=== PATIENT | male | born 1985 | race African-American/Black ===

== ENCOUNTER 2017-02-19 16:12 | Emergency (ER) | payer OTHER ==
[~2017-02-19] VITALS: Ht 172.7 cm; Wt 65.0 kg
[2017-02-19 16:30] VITALS: BP 122/70
[2017-02-19] MEDS ORDERED: IV NORMAL SALINE 1,000ML 1,000 ML IV ONE (16:45)
[2017-02-19] MEDS ORDERED: PROCHLORPERAZINE 10 MG/2 ML VIAL. IV ONE (17:00)
[2017-02-19] MEDS ORDERED: KETOROLAC 15 MG/ML VIAL. IV ONE (17:00)
[2017-02-19] MEDS ORDERED: ONDANSETRON PF 4 MG/2 ML VIAL. IV ONE (17:00)
[2017-02-19] MEDS ORDERED: DIPHENHYDRAMINE 50 MG/ML VIAL IVP ONE (17:00)
--- NOTE | 2017-02-19 17:04 | ED.ADGEN ---
Past History Past Medical History: No Pertinent History Past Surgical History: No Surgical History Alcohol Use: Occasionally Drug Use: None Adult General HPI HPI Patient is a 31-year-old male presents emergency department complaining of 2 to three-day history of worsening bilateral temporal headache. He also notes that beginning last night he has had nausea, vomiting, and diarrhea. Patient initially tried Tylenol and Excedrin for his headache without much relief. He does not have a history of migraines. Although he does endorse photophobia and phonophobia now. Denies any history of bad food exposure or recent travel. Review of Systems Review of Systems Constitutional: Denies fever or chills [] Eyes: Denies change in visual acuity, redness, or eye pain [] HENT: Denies nasal congestion or sore throat [] Respiratory: Denies cough or shortness of breath [] Cardiovascular: No additional information not addressed in HPI [] GI: Denies abdominal pain, nausea, vomiting, bloody stools or diarrhea [] : Denies dysuria or hematuria [] Musculoskeletal: Denies back pain or joint pain [] Integument: Denies rash or skin lesions [] Neurologic: Denies headache, focal weakness or sensory changes [] Endocrine: Denies polyuria or polydipsia [] Current Medications Current Medications Current Medications Medications (Trade) Dose Ordered Sig/Melia Start Time Stop Time Status Last Admin Dose Admin Diphenhydramine HCl (Benadryl) 25 mg 1X ONCE 02/19/17 17:00 02/19/17 17:01 DC 02/19/17 16:59 25 MG Ketorolac Tromethamine (Toradol) 15 mg 1X ONCE 02/19/17 17:00 02/19/17 17:01 DC 02/19/17 16:58 15 MG Ondansetron HCl (Zofran) 4 mg 1X ONCE 02/19/17 17:00 02/19/17 17:01 DC 02/19/17 16:57 4 MG Prochlorperazine Edisylate (Compazine) 10 mg 1X ONCE 02/19/17 17:00 02/19/17 17:01 DC 02/19/17 16:57 10 MG Sodium Chloride (Iv Sodium Chloride 0.9% 1,000ml) 1,000 ml @ 1,000 mls/hr 1X ONCE 02/19/17 16:45 02/19/17 17:44 02/19/17 16:57 1,000 MLS/HR Allergies Allergies Allergies Coded Allergies Type Severity Reaction Last Updated Verified No Known Drug Allergies 02/19/17 No Physical Exam Physical Exam Constitutional: Well developed, well nourished, no acute distress, non-toxic appearance. [] HENT: Normocephalic, atraumatic, bilateral external ears normal, oropharynx moist, no oral exudates, nose normal. [] Eyes: PERRLA, EOMI, conjunctiva normal, no discharge. [] Neck: Normal range of motion, no tenderness, supple, no stridor. [] Cardiovascular:Heart rate regular rhythm, no murmur [] Lungs & Thorax: Bilateral breath sounds clear to auscultation [] Abdomen: Bowel sounds normal, soft, no tenderness, no masses, no pulsatile masses. [] Skin: Warm, dry, no erythema, no rash. [] Back: No tenderness, no CVA tenderness. [] Extremities: No tenderness, no cyanosis, no clubbing, ROM intact, no edema. [] Neurologic: Alert and oriented X 3, normal motor function, normal sensory function, no focal deficits noted. [] Psychologic: Affect normal, judgement normal, mood normal. [] Current Patient Data Vital Signs Vital Signs Date Time Temp Pulse Resp B/P Pulse Ox O2 Delivery O2 Flow Rate FiO2 02/19/17 16:30 98.1 99 20 99 Room Air EKG EKG [] Radiology/Procedures Radiology/Procedures [] Course & Med Decision Making Course & Med Decision Making Pertinent Labs and Imaging studies reviewed. (See chart for details) IV fluids, Compazine, Zofran, Toradol, and Benadryl [] Final Impression Final Impression Headache Gastroenteritis [] Problems: Dragon Disclaimer Dragon Disclaimer This electronic medical record was generated, in whole or in part, using a voice recognition dictation system. EDUARDO VINES MD Feb 19, 2017 17:04
[2017-02-19] MEDS ORDERED: ONDA4TAB10 PO (17:35)
== END 2017-02-19 17:46 | disposition home or self-care (01) ==
LOC: ER 16:12
DX: K52.9 Noninfective gastroenteritis and colitis, unspecified (principal); R51 Headache
CPT/HCPCS: 96361; 96374; 96375; 99284; J0780; J1200; J1885; J2405; J7030

== ENCOUNTER 2018-02-18 20:05 | Emergency (ER) | payer OTHER ==
[~2018-02-18] VITALS: Ht 172.7 cm; Wt 72.6 kg
[~2018-02-18 20:05] MED LIST: ONDA4TAB10 PO
[2018-02-18] MEDS ORDERED: ONDANSETRON PF 4 MG/2 ML VIAL. IV ONE (20:45)
[2018-02-18] MEDS ORDERED: IV NORMAL SALINE 1,000ML 1,000 ML IV ONE (20:45)
[2018-02-18] MEDS ORDERED: ONDANSETRON ODT 4 MG TAB.RAPDIS PO ONE (21:00)
[2018-02-18] MEDS ORDERED: IBUPROFEN 600 MG TABLET. PO ONE (21:00)
--- NOTE | 2018-02-18 21:24 | ED.ADGEN ---
Past History Past Medical History: No Pertinent History Past Surgical History: No Surgical History Alcohol Use: Occasionally Drug Use: None Adult General HPI HPI Patient is a 32 y/o male who states he has had n/v/d since yest. 101 tmax at home. 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 no other sick contacts. no travel. no swimming in lakes, oceans. no focal abd pain. no hx of UC, diverticulitis Review of Systems Review of Systems Constitutional: Denies fever or chills [] Eyes: Denies change in visual acuity, redness, or eye pain [] HENT: Denies nasal congestion or sore throat [] Respiratory: Denies cough or shortness of breath [] Cardiovascular: No additional information not addressed in HPI [] GI: n/v/d, watery stools. abdominal cramping : Denies dysuria or hematuria [] Musculoskeletal: Denies back pain or joint pain [] Integument: Denies rash or skin lesions [] Neurologic: Denies headache, focal weakness or sensory changes [] Endocrine: Denies polyuria or polydipsia [] All other systems were reviewed and found to be within normal limits, except as documented in this note. Current Medications Current Medications Current Medications Medications (Trade) Dose Ordered Sig/Melia Start Time Stop Time Status Last Admin Dose Admin Ibuprofen (Motrin) 600 mg 1X ONCE 02/18/18 21:00 02/18/18 21:01 DC 02/18/18 21:03 600 MG Ondansetron HCl (Zofran Odt) 4 mg 1X ONCE 02/18/18 21:00 02/18/18 21:01 DC 02/18/18 21:03 4 MG Ondansetron HCl (Zofran) 4 mg 1X ONCE 02/18/18 20:45 02/18/18 21:15 DC Sodium Chloride 1,000 ml @ 1,000 mls/hr 1X ONCE 02/18/18 20:45 02/18/18 21:15 DC Allergies Allergies Allergies Coded Allergies Type Severity Reaction Last Updated Verified No Known Drug Allergies 02/19/17 No Physical Exam Physical Exam Constitutional: Well developed, well nourished, no acute distress, non-toxic appearance. [] HENT: Normocephalic, atraumatic, bilateral external ears normal, oropharynx moist, no oral exudates, nose normal. [] Eyes: PERRLA, EOMI, conjunctiva normal, no discharge. [] Neck: Normal range of motion, no tenderness, supple, no stridor. [] Cardiovascular:Heart rate regular rhythm, no murmur [] Lungs & Thorax: Bilateral breath sounds clear to auscultation [] Abdomen: Bowel sounds normal, soft, minimal tenderness in all quadrants. no focal pain. not worse in RLQ . no masses, no pulsatile masses. [] Skin: Warm, dry, no erythema, no rash. [] Back: No tenderness, no CVA tenderness. [] Extremities: No tenderness, no cyanosis, no clubbing, ROM intact, no edema. [] Neurologic: Alert and oriented X 3, normal motor function, normal sensory function, no focal deficits noted. [] Psychologic: Affect normal, judgement normal, mood normal. [] Current Patient Data Vital Signs Vital Signs Date Time Temp Pulse Resp B/P (MAP) Pulse Ox O2 Delivery O2 Flow Rate FiO2 02/18/18 20:05 99.9 96 18 97 Room Air EKG EKG [] Radiology/Procedures Radiology/Procedures [] Course & Med Decision Making Course & Med Decision Making Pertinent Labs and Imaging studies reviewed. (See chart for details) pt refuses IV and blood draw. he gets anxiety and lightheaded with IV. we expressed the importance of checking electrolytes and hydrating IV is faster. he still refuses. he states he will return if he worsens for re-evaluation [] Final Impression Final Impression vomiting and diarrhea[] Problems: Dragon Disclaimer Dragon Disclaimer This electronic medical record was generated, in whole or in part, using a voice recognition dictation system. Departure Time of Disposition: 21:22 Disposition: 01 HOME, SELF-CARE Condition: IMPROVED Patient Instructions: Nausea and Vomiting Additional Instructions: push clear liquids, gatorade propel, etc. zofran for nausea. tylenol and ibuprofen for pain and fever. return if symptoms worsen Prescriptions ROCAEL Felton MD Feb 18, 2018 21:24
[2018-02-18] MEDS ORDERED: ONDA8TAB12 PO (21:25)
[2018-02-18 21:40] VITALS: BP 118/69
== END 2018-02-18 21:40 | disposition home or self-care (01) ==
LOC: ER 20:05
DX: R11.2 Nausea with vomiting, unspecified (principal); R19.7 Diarrhea, unspecified; R10.9 Unspecified abdominal pain
CPT/HCPCS: 99283; Q0162

== ENCOUNTER 2018-05-05 11:26 | Emergency (ER) | payer OTHER ==
[~2018-05-05] VITALS: Ht 172.7 cm; Wt 71.7 kg
[~2018-05-05 11:26] MED LIST changes: +ONDA8TAB12 PO
[2018-05-05] MEDS ORDERED: IV NORMAL SALINE 1,000ML 1,000 ML IV SCH (11:43)
[2018-05-05] MEDS ORDERED: 0.9 % SODIUM CHLORIDE 10 ML DISP.SYRIN. IV PRN (11:45)
[2018-05-05 12:03] LABS: BASO % 1 % (0-3); EOS # 0.1 x10^3/uL (0.0-0.7); EOS % 2 % (0-3); HEMATOCRIT 42.7 % (39.0-53.0); HEMOGLOBIN 14.1 g/dL (13.0-17.5); LYMPH # 2.9 x10^3/uL (1.0-4.8); LYMPH % 35 % (24-48); MEAN CORPUSCULAR HEMOGLOBIN 27 pg (25-35); MEAN CORPUSCULAR HGB CONC 33 g/dL (31-37); MEAN CORPUSCULAR VOLUME 83 fL (79-100); MONO # 0.7 x10^3/uL (0.0-1.1); MONO % 8 % (0-9); NEUT # 4.6 x10^3uL (1.8-7.7); NEUT % 55 % (31-73); PLATELET COUNT 243 x10^3/uL (140-400); RED BLOOD COUNT 5.13 x10^6/uL (4.30-5.70); RED CELL DISTRIBUTION WIDTH 14.4 % (11.5-14.5); WHITE BLOOD COUNT 8.3 x10^3/uL (4.0-11.0)
--- NOTE | 2018-05-05 12:11 | PHYS DOC ---
Past History Past Medical History: No Pertinent History Past Surgical History: No Surgical History Smoking: Cigarettes, Less than 1pk/day Alcohol Use: Occasionally Drug Use: None Adult General Chief Complaint Chief Complaint: NAUSEA/VOMITING/DIARRHEA HPI HPI 32-year-old male patient complaining of 5 episodes of nonbloody diarrhea and 3 episodes of vomiting since yesterday with generalized weakness and decrease of appetite. Patient denies sick contact, urinary symptoms, fever and chills. Patient states his primary care physician gave him off of work for 2 days but base job asking to come to emergency room. Review of Systems Review of Systems Constitutional: Denies fever or chills reports generalized weakness [] Eyes: Denies change in visual acuity, redness, or eye pain [] HENT: Denies nasal congestion or sore throat [] Respiratory: Denies cough or shortness of breath [] Cardiovascular: No additional information not addressed in HPI [] GI: Reports abdominal pain, nausea, vomiting,diarrhea [] : Denies dysuria or hematuria [] Musculoskeletal: Denies back pain or joint pain [] Integument: Denies rash or skin lesions [] Neurologic: Denies headache, focal weakness or sensory changes [] Endocrine: Denies polyuria or polydipsia [] All other systems were reviewed and found to be within normal limits, except as documented in this note. Current Medications Current Medications Current Medications Medications (Trade) Dose Ordered Sig/Melia Start Time Stop Time Status Last Admin Dose Admin Ondansetron HCl (Zofran) 4 mg 1X ONCE 05/05/18 11:45 05/05/18 11:46 UNV Sodium Chloride (Normal Saline Flush) 10 ml QSHIFT PRN 05/05/18 11:45 UNV Allergies Allergies Allergies Coded Allergies Type Severity Reaction Last Updated Verified No Known Drug Allergies 02/19/17 No Physical Exam Physical Exam Constitutional: Well developed, well nourished, mild distress, non-toxic appearance. [] HENT: Normocephalic, atraumatic, oropharynx dry, no oral exudates, nose normal. [] Eyes: PERRLA, EOMI, conjunctiva normal, no discharge. [] Neck: Normal range of motion, no tenderness, supple, no stridor. [] Cardiovascular:Heart rate regular rhythm, no murmur [] Lungs & Thorax: Bilateral breath sounds clear to auscultation [] Abdomen: Bowel sounds normal, soft, no tenderness, no masses, no pulsatile masses. [] Skin: Warm, dry, no erythema, no rash. [] Back: No tenderness, no CVA tenderness. [] Extremities: No tenderness, no cyanosis, no clubbing, ROM intact, no edema. [] Neurologic: Alert and oriented X 3, normal motor function, normal sensory function, no focal deficits noted. [] Psychologic: Affect normal, judgement normal, mood normal. [] Current Patient Data Lab Results Laboratory Tests Test 05/05/18 11:48 White Blood Count 8.3 x10^3/uL (4.0-11.0) Red Blood Count 5.13 x10^6/uL (4.30-5.70) Hemoglobin 14.1 g/dL (13.0-17.5) Hematocrit 42.7 % (39.0-53.0) Mean Corpuscular Volume 83 fL (79-100) Mean Corpuscular Hemoglobin 27 pg (25-35) Mean Corpuscular Hemoglobin Concent 33 g/dL (31-37) Red Cell Distribution Width 14.4 % (11.5-14.5) Platelet Count 243 x10^3/uL (140-400) Neutrophils (%) (Auto) 55 % (31-73) Lymphocytes (%) (Auto) 35 % (24-48) Monocytes (%) (Auto) 8 % (0-9) Eosinophils (%) (Auto) 2 % (0-3) Basophils (%) (Auto) 1 % (0-3) Neutrophils # (Auto) 4.6 x10^3uL (1.8-7.7) Lymphocytes # (Auto) 2.9 x10^3/uL (1.0-4.8) Monocytes # (Auto) 0.7 x10^3/uL (0.0-1.1) Eosinophils # (Auto) 0.1 x10^3/uL (0.0-0.7) Basophils # (Auto) 0.0 x10^3/uL (0.0-0.2) EKG EKG [] Radiology/Procedures Radiology/Procedures [] Course & Med Decision Making Course & Med Decision Making Pertinent Labs reviewed. (See chart for details) Evaluation of patient in ER showed 33-year-old male patient with episodes of nausea and vomiting and diarrhea since yesterday. Patient didn't want to have IV fluids and states when he had the same problem last time he didn't feel good with IV fluid but finally agreed to have IV fluid and felt better after treatment in ER.. Patient tolerated oral intake. Patient had unremarkable labs. Plan discharge patient home to diagnose of viral gastroenteritis. [] Dragon Disclaimer Dragon Disclaimer This electronic medical record was generated, in whole or in part, using a voice recognition dictation system. Departure Departure: Impression: Primary Impression: Acute gastroenteritis Additional Impressions: Tobacco abuse Tobacco abuse counseling Disposition: HOME, SELF-CARE (at 1322) Condition: IMPROVED Referrals: SHABNAM LOCKWOOD DO (PCP) Patient Instructions: Diet for Diarrhea, Adult, Viral Gastroenteritis Additional Instructions: Drink plenty of liquids Follow-up with your primary care physician in 3-5 days Return to ER if not getting better Scripts Ondansetron (ZOFRAN ODT) 4 Mg Tab.rapdis 1 TAB SL Q8HRS, #15 TAB Prov: BREN DOMÍNGUEZ MD 05/05/18 Problem Qualifiers BREN DOMÍNGUEZ MD May 05, 2018 12:11
[2018-05-05 12:14] LABS: ALBUMIN/GLOBULIN RATIO 1.1 (1.0-1.7); CALCIUM 9.3 mg/dL (8.5-10.1); GFR 104.8; POTASSIUM 4.1 mmol/L (3.5-5.1); TOTAL BILIRUBIN 0.5 mg/dL (0.2-1.0); TOTAL PROTEIN 7.7 g/dL (6.4-8.2)
[2018-05-05] MEDS ORDERED: DIPHENOXYLATE/ATROPINE TABLET. PO ONE (12:30)
[2018-05-05] MEDS ORDERED: ONDANSETRON PF 4 MG/2 ML VIAL. IV ONE (12:30)
[2018-05-05 13:12] LABS: BACTERIA,URINE 0 /HPF (0-FEW); BILIRUBIN,URINE NEG (NEG); CLARITY,URINE CLEAR; COLOR,URINE YELLOW; GLUCOSE,URINE NEG (NEG); NITRITE,URINE NEG (NEG); RBC,URINE 0 /HPF (0-2); SQUAMOUS EPITHELIAL CELL,UR OCC /LPF; UROBILINOGEN,URINE 0.2 mg/dL (0.2 mg/dL); WBC,URINE 0 /HPF (0-4)
[2018-05-05] MEDS ORDERED: ONDA4TAB10 SL (13:24)
[2018-05-05 13:30] VITALS: BP 127/65
== END 2018-05-05 13:33 | disposition home or self-care (01) ==
LOC: ER 11:26
DX: K52.9 Noninfective gastroenteritis and colitis, unspecified (principal); B97.89 Other viral agents as the cause of diseases classified elsewhere; F17.210 Nicotine dependence, cigarettes, uncomplicated; Z71.6 Tobacco abuse counseling
CPT/HCPCS: 36415; 80053; 81001; 83690; 85025; 96361; 96374; 99284; J2405; J7030

== ENCOUNTER 2018-08-02 14:59 | Emergency (ER) | payer OTHER ==
[~2018-08-02] VITALS: Ht 172.7 cm; Wt 69.9 kg
[~2018-08-02 14:59] MED LIST changes: +ONDA4TAB10 SL
--- NOTE | 2018-08-02 16:00 | RAD ---
KUB Clinical indications: Lower bilateral back pain. FINDINGS: There is mild fecal retention within the right side of the colon. No obstructive bowel pattern is evident. The osseous structures are intact. No radiopaque urinary tract stone is evident. 2 calcified phleboliths are seen within the left side of the anatomic pelvis. IMPRESSION: No acute radiographic abnormality. Electronically signed by: Mich Morataya MD (08/02/2018 3:56 PM) [id number]
[2018-08-02] MEDS ORDERED: HYDROcodone/APAP 5/325MG 1 TAB TABLET PO ONE (16:15)
[2018-08-02] MEDS ORDERED: CYCLOBENZAPRINE 10 MG TABLET. PO ONE (16:15)
[2018-08-02 16:20] LABS: CLARITY,URINE HAZY; COLOR,URINE YELLOW
[2018-08-02 16:21] LABS: BACTERIA,URINE 0 /HPF (0-FEW); BILIRUBIN,URINE NEG (NEG); GLUCOSE,URINE NEG (NEG); NITRITE,URINE NEG (NEG); SQUAMOUS EPITHELIAL CELL,UR OCC /LPF; UROBILINOGEN,URINE 1 mg/dL (0.2 mg/dL)
[2018-08-02 16:24] VITALS: BP 117/63
--- NOTE | 2018-08-02 16:58 | ED.ADGEN ---
Past History Past Medical History: No Pertinent History Past Surgical History: No Surgical History Smoking: Cigarettes, Less than 1pk/day Alcohol Use: Occasionally Drug Use: None Adult General Chief Complaint Chief Complaint Flank pain HPI HPI Patient is 32 year old AA male presents with intermittent bilateral flank pain for 2 weeks. No nausea, vomiting, chest pain, abdominal pain, constipation or diarrhea. Flank pain nonradiating. No motor weakness, loss of sensation. No other acute symptoms or complaints.[] Review of Systems Review of Systems ROS as per HPI All other systems were reviewed and found to be within normal limits, except as documented in this note. Current Medications Current Medications Current Medications Medications (Trade) Dose Ordered Sig/Melia Start Time Stop Time Status Last Admin Dose Admin Acetaminophen/ Hydrocodone Bitart (Lortab 5/325) 1 tab 1X ONCE 08/02/18 16:15 08/02/18 16:16 DC 08/02/18 16:18 1 TAB Cyclobenzaprine HCl (Flexeril) 10 mg 1X ONCE 08/02/18 16:15 08/02/18 16:16 DC 08/02/18 16:18 10 MG Allergies Allergies Allergies Coded Allergies Type Severity Reaction Last Updated Verified No Known Drug Allergies 02/19/17 No Physical Exam Physical Exam Constitutional: Well developed, well nourished, no acute distress, non-toxic appearance. [] HENT: Normocephalic, atraumatic, bilateral external ears normal, oropharynx moist, nose normal. [] Eyes: PERRLA, EOMI, conjunctiva normal, no discharge. [] Neck: Normal range of motion, no tenderness. [] Cardiovascular:Heart rate regular rhythm, no murmur [] Lungs & Thorax: Bilateral breath sounds clear to auscultation [] Abdomen: Bowel sounds normal, soft, no tenderness. [] Skin: Warm, dry, no erythema, no rash. [] Back: No midline ttp, no CVA tenderness. [] Extremities: No tenderness. [] Neurologic: Alert and oriented X 3, normal motor function, normal sensory function, no focal deficits noted. [] Psychologic: Affect normal, judgement normal, mood normal. [] Current Patient Data Vital Signs Vital Signs Date Time Temp Pulse Resp B/P (MAP) Pulse Ox O2 Delivery O2 Flow Rate FiO2 08/02/18 16:24 78 20 117/63 (81) 94 Room Air 08/02/18 14:59 98.4 Lab Results Laboratory Tests Test 08/02/18 15:55 Urine Collection Type Unknown Urine Color Yellow Urine Clarity Hazy Urine pH 5.5 Urine Specific [place] 1.025 Urine Protein Neg (NEG-TRACE) Urine Glucose (UA) Neg mg/dL (NEG) Urine Ketones (Stick) Neg mg/dL (NEG) Urine Blood Trace (NEG) Urine Nitrite Neg (NEG) Urine Bilirubin Neg (NEG) Urine Urobilinogen Dipstick 1 mg/dL (0.2 mg/dL) Urine Leukocyte Esterase Trace (NEG) Urine RBC 1-2 /HPF (0-2) Urine WBC 5-10 /HPF (0-4) Urine Squamous Epithelial Cells Occ /LPF Urine Bacteria 0 /HPF (0-FEW) Urine Mucus Slight /LPF EKG EKG [] Radiology/Procedures Radiology/Procedures [XR KUB/Lumbar spine/CT abdomen pelvis: low density lesions involving liver and spleen identified. Exam otherwise nondiagnostic per radiology report. Course & Med Decision Making Course & Med Decision Making Pertinent Labs and Imaging studies reviewed. (See chart for details) [Bilateral flank pain, nonspecific findings with lesions on spleen and liver of questionable significance. Patient with Blade tract infection. Will treat with PCP follow-up for further management to review CT findings. Return precautions reviewed. Patient verbalizes understanding agreement discharge instructions prior to departure] Final Impression Final Impression [1. Bilateral flank pain 2. UTI] Dragon Disclaimer Dragon Disclaimer This electronic medical record was generated, in whole or in part, using a voice recognition dictation system. REYMUNDO CAMERON DO Aug 02, 2018 16:58
--- NOTE | 2018-08-02 17:03 | RAD ---
CT abdomen pelvis without intravenous contrast History: Bilateral flank pain for one month. Comparison: None. Technique: CT of the abdomen and pelvis was performed without intravenous or oral contrast. Exposure: One or more of the following individualized dose reduction techniques were utilized for this examination: 1. Automated exposure control 2. Adjustment of the mA and/or kV according to patient size 3. Use of iterative reconstruction technique Findings: Evaluation of solid organs is limited by lack of intravenous contrast. Evaluation of enteric structures may be limited by lack of oral contrast. Inferior right hepatic lobe demonstrates a vague 1.2 cm low-density nodule, not adequately characterized on this examination. Inferior spleen demonstrates 1.2 cm low-density nodule, not adequately evaluated. Pancreas, gallbladder, and bilateral adrenal glands unremarkable. Bilateral kidneys and ureters are free stone or obstruction. No bowel obstruction or inflammation is identified. Appendix it is without evidence of inflammation. Urinary bladder is unremarkable. No free air free fluid is seen in the abdomen or pelvis. Impression: 1. No evidence of urinary stone or obstruction. No acute abnormality identified in the abdomen or pelvis. 2. Low-density lesions are seen involving the liver and spleen, nonspecific. Given patient age, and if no history of malignancy, these probably represent benign entities. Electronically signed by: Louie Hurtado MD (08/02/2018 4:59 PM) [place] [id number]
[2018-08-02] MEDS ORDERED: DOXY100C14 PO (17:16)
[2018-08-02] MEDS ORDERED: CYCL-331 PO (17:16)
--- NOTE | 2018-08-02 17:17 | RAD ---
Lumbar spine, 3 views, 08/02/2018: HISTORY: Low back and flank pain The vertebral heights and intervertebral disc spaces are well-maintained. No fracture or dislocation is identified. The paraspinous soft tissues are unremarkable. Several left-sided pelvic calcifications are probably phleboliths. IMPRESSION: No acute lumbar spine abnormality is detected. Electronically signed by: Oli Astorga MD (08/02/2018 5:14 PM) [facility]
== END 2018-08-02 17:30 | disposition home or self-care (01) ==
LOC: ER 14:59
DX: N39.0 Urinary tract infection, site not specified (principal); F17.210 Nicotine dependence, cigarettes, uncomplicated
CPT/HCPCS: 72100; 74018; 74176; 81001; 87086; 99285

== ENCOUNTER 2018-08-21 14:29 | Emergency (ER) | payer OTHER ==
[~2018-08-21 14:29] MED LIST changes: +CYCL-331 PO; +DOXY100C14 PO
[2018-08-21] MEDS ORDERED: ONDANSETRON PF 4 MG/2 ML VIAL. IV ONE (14:45)
[2018-08-21] MEDS ORDERED: KETOROLAC 30 MG/ML VIAL. IV ONE (14:45)
[2018-08-21] MEDS ORDERED: IV NORMAL SALINE 1,000ML 1,000 ML IV SCH (14:45)
[2018-08-21 15:06] LABS: BASO % 0 % (0-3); EOS # 0.1 x10^3/uL (0.0-0.7); EOS % 1 % (0-3); HEMOGLOBIN 14.5 g/dL (13.0-17.5); LYMPH # 2.3 x10^3/uL (1.0-4.8); LYMPH % 30 % (24-48); MEAN CORPUSCULAR HEMOGLOBIN 27 pg (25-35); MEAN CORPUSCULAR HGB CONC 33 g/dL (31-37); MEAN CORPUSCULAR VOLUME 83 fL (79-100); MONO # 0.6 x10^3/uL (0.0-1.1); MONO % 8 % (0-9); NEUT # 4.6 x10^3uL (1.8-7.7); NEUT % 60 % (31-73); PLATELET COUNT 224 x10^3/uL (140-400); RED BLOOD COUNT 5.32 x10^6/uL (4.30-5.70); RED CELL DISTRIBUTION WIDTH 14.3 % (11.5-14.5); WHITE BLOOD COUNT 7.6 x10^3/uL (4.0-11.0)
[2018-08-21 15:10] LABS: CALCIUM 9.1 mg/dL (8.5-10.1); CREATININE 1.1 mg/dL (0.7-1.3); GFR 93.9; POTASSIUM 3.9 mmol/L (3.5-5.1)
[2018-08-21 15:43] LABS: BILIRUBIN,URINE NEG (NEG); CLARITY,URINE CLEAR; COLOR,URINE YELLOW; GLUCOSE,URINE NEG (NEG)
[2018-08-21 15:44] LABS: BACTERIA,URINE FEW /HPF (0-FEW); NITRITE,URINE NEG (NEG); RBC,URINE OCC /HPF (0-2); SQUAMOUS EPITHELIAL CELL,UR FEW /LPF; UROBILINOGEN,URINE 0.2 mg/dL (0.2 mg/dL); WBC,URINE OCC /HPF (0-4)
[2018-08-21] MEDS ORDERED: IOHEXOL 300 MG/ML 75 ML VIAL. IV ONE (16:30)
[2018-08-21 17:00] VITALS: BP 117/62
--- NOTE | 2018-08-21 17:04 | RAD ---
CT ABD PELV W/ IV CONTRST ONLY Indication: Left side abd pain x 30 days, Omni 300 75ml iv only was given Exposure: One or more of the following individualized dose reduction techniques were utilized for this examination: 1. Automated exposure control 2. Adjustment of the mA and/or kV according to patient size 3. Use of iterative reconstruction technique. Comparison: August 02, 2018 Contrast: Intravenous contrast was given. No oral contrast per request. FINDINGS: Lower thorax: Minimal atelectasis. Liver: Hyperdense enhancing nodule in the lower right lobe of the liver measures about 13 mm, corresponded with hypoattenuation on the previous noncontrast study. This likely represents a benign hemangioma assuming there are no risk factors to suggest otherwise. Spleen: Hypodense lesion of the spleen, stable since prior exam. Pancreas: Unremarkable Adrenals: No evidence of mass. Kidneys: No obvious mass. Urinary tracts: No hydronephrosis. Gallbladder: No calcified stone Lymph nodes: No significant enlargement Vessels: * Aorta: Nonaneurysmal * Major aortic branches: Grossly patent. * Portal venous: Patent GI tract: No evidence of acute colitis. No evidence of bowel obstruction. Appendix is normal. Reproductive organs:No evidence of mass. Urinary bladder: Mild wall thickening, although to some degree this could be due to incomplete distention. Peritoneum: No evidence of pneumoperitoneum. No free fluid. Abdominal wall:Unremarkable Spine: Vertebral body height and alignment are intact. Bones: No destructive process identified. IMPRESSION: 1. No acute findings in the abdomen or pelvis. 2. Small enhancing mass at the inferior right lobe of the liver. This may represent a small hemangioma, unless patient has risk factors or clinical history warranting further evaluation such as with MRI. Electronically signed by: Louie Belle MD (08/21/2018 5:01 PM) [id number]
--- NOTE | 2018-08-21 17:22 | PHYS DOC ---
Past History Past Medical History: UTI Past Surgical History: No Surgical History Smoking: Cigarettes, Less than 1pk/day Alcohol Use: Occasionally Drug Use: None Adult General Chief Complaint Chief Complaint: FLANK PAIN HPI HPI Patient is a 32-year-old male who presents with complaint of left posterior flank/back pain. Patient states that he had similar symptoms about 2-3 weeks ago and was seen at that time here in the emergency room and they had evaluated him for kidney stone. He indicates that he was just diagnosed with a urinary tract infection however. Patient states that he had finished the antibiotics. He states that he has continued to have a dull nagging pain in his back but it has not been severe. He states that today he had stepped off of a curb and suddenly felt excruciating pain in his left back/posterior flank region. He denies any loss of bowel or bladder control and denies any radiation of pain. He rates pain at a 9 out of 10. He states the pain is worsened with movement. Review of Systems Review of Systems Constitutional: Denies fever or chills [] Respiratory: Denies cough or shortness of breath [] Cardiovascular: Denies chest pain[] GI: Denies abdominal pain, nausea, vomiting or diarrhea [] : Denies dysuria or hematuria [] Musculoskeletal: Complains of left-sided back/flank pain[] Neurologic: Denies headache, focal weakness or sensory changes [] All other systems were reviewed and found to be within normal limits, except as documented in this note. Current Medications Current Medications Current Medications Medications (Trade) Dose Ordered Sig/Melia Start Time Stop Time Status Last Admin Dose Admin Fentanyl Citrate (Fentanyl 2ml Vial) 100 mcg STK-MED ONCE 08/21/18 15:42 08/21/18 15:43 DC Iohexol (Omnipaque 300 Mg/ml) 75 ml 1X ONCE 08/21/18 16:30 08/21/18 16:31 DC 08/21/18 16:28 75 ML Ketorolac Tromethamine (Toradol 30mg Vial) 30 mg 1X ONCE 08/21/18 14:45 08/21/18 14:46 DC 08/21/18 14:49 30 MG Ondansetron HCl (Zofran) 4 mg 1X ONCE 08/21/18 14:45 08/21/18 14:46 DC 08/21/18 14:49 4 MG Sodium Chloride 1,000 ml @ 1,000 mls/hr Q1H 08/21/18 14:45 08/21/18 15:44 DC 08/21/18 14:49 1,000 MLS/HR Allergies Allergies Allergies Coded Allergies Type Severity Reaction Last Updated Verified No Known Drug Allergies 02/19/17 No Physical Exam Physical Exam Constitutional: Well developed, well nourished, no acute distress, non-toxic appearance. [] HENT: Normocephalic, atraumatic, bilateral external ears normal, oropharynx moist, no oral exudates, nose normal. [] Eyes: PERRLA, EOMI, conjunctiva normal, no discharge. [] Neck: Normal range of motion, no tenderness, supple, no stridor. [] Cardiovascular:Heart rate regular rhythm, no murmur [] Lungs & Thorax: Bilateral breath sounds clear to auscultation [] Abdomen: Bowel sounds normal, soft, no tenderness. [] Skin: Warm, dry, no erythema, no rash. [] Back: There is tenderness to palpation around the left thoracolumbar junction. There is mild palpable spasm noted in this area. [] Extremities: No tenderness, no cyanosis, no clubbing, ROM intact, no edema. [] Neurologic: Alert and oriented X 3, normal motor function, normal sensory function, no focal deficits noted. [] Current Patient Data Vital Signs Vital Signs Date Time Temp Pulse Resp B/P (MAP) Pulse Ox O2 Delivery O2 Flow Rate FiO2 08/21/18 14:29 98.3 78 117/56 (76) 100 Room Air 08/21/18 14:29 20 Lab Results Laboratory Tests Test 08/21/18 14:50 White Blood Count 7.6 x10^3/uL (4.0-11.0) Red Blood Count 5.32 x10^6/uL (4.30-5.70) Hemoglobin 14.5 g/dL (13.0-17.5) Hematocrit 44.0 % (39.0-53.0) Mean Corpuscular Volume 83 fL (79-100) Mean Corpuscular Hemoglobin 27 pg (25-35) Mean Corpuscular Hemoglobin Concent 33 g/dL (31-37) Red Cell Distribution Width 14.3 % (11.5-14.5) Platelet Count 224 x10^3/uL (140-400) Neutrophils (%) (Auto) 60 % (31-73) Lymphocytes (%) (Auto) 30 % (24-48) Monocytes (%) (Auto) 8 % (0-9) Eosinophils (%) (Auto) 1 % (0-3) Basophils (%) (Auto) 0 % (0-3) Neutrophils # (Auto) 4.6 x10^3uL (1.8-7.7) Lymphocytes # (Auto) 2.3 x10^3/uL (1.0-4.8) Monocytes # (Auto) 0.6 x10^3/uL (0.0-1.1) Eosinophils # (Auto) 0.1 x10^3/uL (0.0-0.7) Basophils # (Auto) 0.0 x10^3/uL (0.0-0.2) Urine Collection Type Void Urine Color Yellow Urine Clarity Clear Urine pH 6.0 Urine Specific [place] 1.025 Urine Protein Neg (NEG-TRACE) Urine Glucose (UA) Neg mg/dL (NEG) Urine Ketones (Stick) Neg mg/dL (NEG) Urine Blood Neg (NEG) Urine Nitrite Neg (NEG) Urine Bilirubin Neg (NEG) Urine Urobilinogen Dipstick 0.2 mg/dL (0.2 mg/dL) Urine Leukocyte Esterase Neg (NEG) Urine RBC Occ /HPF (0-2) Urine WBC Occ /HPF (0-4) Urine Squamous Epithelial Cells Few /LPF Urine Bacteria Few /HPF (0-FEW) Urine Mucus Mod /LPF Sodium Level 140 mmol/L (136-145) Potassium Level 3.9 mmol/L (3.5-5.1) Chloride Level 104 mmol/L (98-107) Carbon Dioxide Level 27 mmol/L (21-32) Anion Gap 9 (6-14) Blood Urea Nitrogen 24 mg/dL (8-26) Creatinine 1.1 mg/dL (0.7-1.3) Estimated GFR (Cockcroft-Gault) 93.9 Glucose Level 97 mg/dL (70-99) Calcium Level 9.1 mg/dL (8.5-10.1) EKG EKG [] Radiology/Procedures Radiology/Procedures [] Impressions: CT abdomen and pelvis demonstrates no findings to explain patient's pain. Patient does have a small hyperdense nodule in the lower right lobe of the liver likely represents benign hemangioma. Findings of CT scan were reviewed with patient including importance of following up on the liver finding. Patient was provided with a copy of his CT scan. Course & Med Decision Making Course & Med Decision Making Pertinent Labs and Imaging studies reviewed. (See chart for details) [] Dragon Disclaimer Dragon Disclaimer This electronic medical record was generated, in whole or in part, using a voice recognition dictation system. Departure Departure: Impression: Primary Impression: Acute lumbar myofascial strain Disposition: HOME, SELF-CARE Condition: STABLE Referrals: HOSEA NIETO PA-C (PCP) Patient Instructions: Lumbosacral Strain Problem Qualifiers Primary Impression: Acute lumbar myofascial strain Encounter type: subsequent encounter Qualified Codes: S39.012D - Strain of muscle, fascia and tendon of lower back, subsequent encounter KAREEM MENDOZA Jr. DO Aug 21, 2018 17:22
== END 2018-08-21 17:34 | disposition home or self-care (01) ==
LOC: ER 14:29
DX: S39.012A Strain of muscle, fascia and tendon of lower back, initial encounter (principal); Z87.440 Personal history of urinary (tract) infections; F17.210 Nicotine dependence, cigarettes, uncomplicated; W10.1XXA Fall (on)(from) sidewalk curb, initial encounter; Y93.89 Activity, other specified; Y92.89 Other specified places as the place of occurrence of the external cause; Y99.8 Other external cause status
CPT/HCPCS: 36415; 74177; 80048; 81001; 85025; 96374; 96375; 99285; J1885; J2405; Q9967; 96361; J3010; J7030

== ENCOUNTER → 2019-03-17 | Outpatient (CLI) | payer OTHER ==
--- NOTE | 2019-03-17 17:02 | RAD ---
EXAM: Right knee, 2 views; bilateral knees, standing view. HISTORY: Pain. COMPARISON: None. FINDINGS: A frontal standing view both knees and lateral and sunrise views of the right knee are obtained. There is no fracture, dislocation or subluxation. There is no suspicious osseous lesion. There is a small right knee effusion. IMPRESSION: 1. Small right knee effusion. 2. No acute osseous finding. Electronically signed by: Erika Steiner MD (03/17/2019 4:59 PM) [facility]
== END | disposition home or self-care (01) ==
LOC: RAD 13:51
PROVIDERS: ATTEND Orthopaedic Surgery
DX: M25.461 Effusion, right knee (principal)
CPT/HCPCS: 73560; 73565